=== PATIENT | female | born 1990 | race Caucasian/White ===

== ENCOUNTER 2022-03-03 19:24 | Emergency (ER) | payer MEDICAID ==
[~2022-03-03] VITALS: Ht 177.8 cm; Wt 140.0 kg
[2022-03-03 20:21] LABS: BASOPHILS % 0.6 % (0.0-2.0); HEMATOCRIT. 40.1 % (36.0-48.0); HEMOGLOBIN. 14.2 g/dL (12.0-16.0); LYMPHOCYTES % 46.2 % (20.0-50.0); MEAN CORPUSCULAR HEMOGLOBIN 30.1 pg (28.0-32.0); MEAN CORPUSCULAR VOLUME 85.1 fL (81.0-99.0); MEAN PLATELET VOLUME 8.6 fl (7.4-10.4); NEUTROPHILS % 41.2 % (40.0-76.0); PLATELET 182 x1000/uL (130-400); RED BLOOD CELL COUNT 4.71 mill/uL (4.2-5.4); RED CELL DISTRIBUTION WIDTH 13.1 % (11.6-14.6)
[2022-03-03 20:32] LABS: CHLORIDE 101 mEq/L (98-107)
[2022-03-03 20:40] LABS: BETA HYDROXYBUTYRATE 0.3 mMol/L (0.0-0.3); ETHANOL BLOOD < 10 mg/dL
[2022-03-03] MEDS ORDERED: SODIUM CHLORIDE 0.9% 1,000 ML IV ONE (21:00)
[2022-03-03 21:46] VITALS: BP 136/81
== END 2022-03-03 22:13 | disposition left against medical advice (07) ==
LOC: ER 19:24
DX: R53.1 Weakness (principal); E11.9 Type 2 diabetes mellitus without complications; I10 Essential (primary) hypertension; F41.9 Anxiety disorder, unspecified
CPT/HCPCS: 36415; 80053; 80320; 81025; 82010; 82962; 83690; 85025; 96360; 99283; J7030; G0480